=== PATIENT | female | born 1985 | race Caucasian/White ===

== ENCOUNTER 2023-07-21 12:47 | Emergency (ER) | payer OTHER, SELFPAY ==
[2023-07-21 12:52] VITALS: BP 110/80; PULSE 97; RESP 16; TEMP 37.1; O2SAT 98; BMI 22.6
--- NOTE | 2023-07-21 12:55 | ED_ITS ---
HPI - General Adult General Chief complaint: Skin/Abscess/Foreign Body Stated complaint: rash Time Seen by Provider: 07/21/23 13:00 Source: patient Mode of arrival: ambulatory Limitations: no limitations History of Present Illness HPI narrative: Patient is a 37-year old female with history of MRSA presenting to the emergency department with complaint of rash to face and right hand for the past week, above eyebrows, in bilateral nares. States rash started as pruritic but is now sore. Has tried OTC triple antibiotic ointment as well as anti-fungal cream with little change. Went to [facility] for same complaint but left waiting room due to wait time. Denies fevers/chills/body aches. Denies rash to any other areas. MD complaint: rash Onset (ago): week(s) Location: face, right and upper extremity Radiation: non-radiation Severity: mild Quality: burning Pain Consistency: constant Relieving factors: none Exacerbating factors: none Associated symptoms: denies other symptoms Treatments prior to arrival: other Related Data Previous Rx's Medication Instructions Recorded cephalexin 500 mg tablet 500 mg PO QID 10 days #40 tabs 07/21/23 doxycycline hyclate 100 mg capsule 100 mg PO BID #20 caps 07/21/23 mupirocin 2 % topical ointment 1 appl topical BID 10 days #15 07/21/23 grams Allergies Allergy/AdvReac Type Severity Reaction Status Date / Time morphine [MORPHINE] Allergy Mild VOMITING Unverified 07/21/23 13:00 codeine [CODEINE] Allergy Unknown UNKNOWN Unverified 07/21/23 13:00 gluten Allergy Unknown Unknown Verified 07/21/23 13:00 Penicillins [PENICILLINS] Allergy Unknown UNKNOWN Unverified 07/21/23 13:00 From VICODIN Allergy Unknown UNKNOWN Uncoded 07/21/23 13:00 Review of Systems 2 Review of Systems: As per HPI. Yes all other systems are reviewed and are negative Constitutional: Constitutional: Reports as per HPI Physical Exam ED Vital Signs: Vital Signs - 24 hr 07/21/23 12:52 Temperature 98.7 F Pulse Rate 97 Respiratory Rate 16 Blood Pressure 110/80 Pulse Oximetry 98 Oxygen Delivery Method Room Air BMI result Body Mass Index 22.6 Vital signs have been reviewed and appear to be correct. Blood pressure normal. Heart rate normal. Respiratory rate normal. Temperature normal. Oxygen saturation normal. Const General: cooperative, healthy appearing and no acute distress Orientation/consciousness: oriented to person, oriented to place, oriented to time and patient oriented x3 Limitations: no limitations HENMT Head: Yes normocephalic and Yes atraumatic Head images: 2 1. multiple scabs, mild erythema, no drainage 2. multiple scabs, mild swelling and erythema, no drainage Ears: external ears normal General nose exam: Normal external nose present, Normal septum present and Abnormal external nose present (mild scabbing to external nares) nasal erythema Face and sinus: Yes face symmetric Mouth: oropharynx normal and moist mucous membranes Throat: Yes uvula midline Eyes General: appearance normal, both eyes and all related structures Visual Lenz: normal visual lenz by confrontation Alignment and Position: alignment normal Periorbital: periorbital findings abnormal left (left upper eyelid erythema with mild swelling) Conjunctivae: conjunctivae normal Pupils: Equal, round and reactive pupils present EOM: EOMs intact bilaterally (no pain with EOMs) Neck Neck: Yes normal visual inspection and Yes supple Resp Effort & Inspection: normal respiratory effort and able to speak in complete sentences Auscultation: clear to auscultation bilaterally Cardio Rate: regular rate Rhythm: regular rhythm Heart sounds: S1 normal heart sound present and S2 normal heart sound present GI Palpation (GI): Soft to palpation and nontender Auscultation: normoactive bowel sounds General: Yes no CVA tenderness Back/Spine/Pelvis Back: no CVA tenderness Skin General skin exam: elasticity normal and turgor normal Neuro General: oriented to person, oriented to place, oriented to time, patient oriented x3, moves all extremities, no focal motor deficits and CN's II-XI intact bilaterally Cranial nerves: Yes Equal, round and reactive pupils present Cognition (Neuro): normal cognition Extrem General: Yes full ROM, Yes no pedal edema and Yes no calf tenderness Right upper extremity: Extremity exam: right hand Details: normal capillary refill, neuromotor exam normal, neurosensory exam normal and normal ROM of fingers Left upper extremity: hand (amputated) Hand/finger images: 2 1. scab with surrounding erythema, no fluctuance or drainage Psych Mental Status: mental status grossly normal Affect: normal affect Thought process: Normal thought process present Medical Decision Making Medical Decision Making MDM Narrative: Patient is a 37-year old female with history of MRSA presenting to the emergency department with complaint of rash to face and right hand for the past week. On exam patient is awake, A+Ox3, VS WNL, afebrile, normal neurological exam without focal deficits, physical exam findings as above. Given reported symptoms and physical exam findings, initial differential includes erysipelas vs cellulitis. Not consistent with scabies, bed bugs. Do not suspect TEN/SJS, TSS, DIC, DRESS. No bullae, negative Nikolsky's. Will treat with doxy and keflex given history of MRSA. Patient has documented allergy to PCN, states reaction was rash, was taking at the same time as 2 other medications, so is unsure if this is true allergy. Discussed with patient that we will trial keflex, and to discontinue and return to the ED if she develops any symptoms of an allergic reaction. Return precautions discussed. Patient advised to follow up with PCP. Patient verbalized understanding of and agreement with plan. Differential Diagnosis Differential Diagnoses: The differential diagnosis associated with the presentation includes As per [facility] External Record Review External record reviewed: Inpatient record, Office record and Outpatient record Prescription Management I considered prescription management with: Antibiotic Discharge Plan Discharge Clinical Impression: Cellulitis, Rash and nonspecific skin eruption Patient Disposition: Home, Self-Care Instructions: Cellulitis (DC), Acute Rash (ED) Additional Instructions: You are being prescribed antibiotics for a skin infection called cellulitis. Please complete the full course of both antibiotics as prescribed. Assess the areas daily for signs of worsening infection and return in any of these occur. Follow up with your primary care provider within 2 days. Return to the emergency department with worsening redness, swelling, thick yellow drainage, fever, pain with eye movement, changes in vision, or any other concerning symptoms. Prescriptions: New doxycycline hyclate 100 mg capsule 100 mg PO BID Qty: 20 0RF cephalexin 500 mg tablet 500 mg PO QID 10 Days Qty: 40 0RF mupirocin 2 % ointment 1 appl topical BID 10 Days Qty: 15 0RF
== END 2023-07-21 13:22 | disposition home or self-care (01) ==
PROVIDERS: Emergency Provider Student in an Organized Health Care Education/Training Program; PCP Nurse Practitioner Family
DX: L03.211 Cellulitis of face (principal); M79.601 Pain in right arm; Z79.899 Other long term (current) drug therapy
CPT/HCPCS: 99282; 99283